=== PATIENT | male | born 1970 | race Caucasian/White ===

== ENCOUNTER → 2023-07-21 13:40 | Outpatient (BNVA) | payer OTHER, SELFPAY | PROVIDERS: Family Provider Family Medicine; PCP Nurse Practitioner; Referring Provider Nurse Practitioner; Visit Provider Surgery | DX: Z12.11 Encounter for screening for malignant neoplasm of colon (principal) | CPT/HCPCS: 99203 ==

== ENCOUNTER 2023-10-15 06:10 | Day surgery (SDC) | payer OTHER, SELFPAY ==
--- NOTE | 2023-10-15 05:35 | W.PM.OPSFHP ---
Same Day Surgery H&P Indication for Procedure/HPI DATE OF PROCEDURE: October 15, 2023 CHIEF COMPLAINT/INDICATIONFOR SURGICAL PROCEDURE: need for screening colonoscopy and gerd PREOP DIAGNOSIS: gerd PLANNED PROCEDURE: Operation Date: 10/15/23 07:40 Proposed Procedures p [id number] egd [id number] colon G0121 screen colon A risk Z12.11, K21.9(Not Applicable) - Jaret Goodrich MD s Colonoscopy(Not Applicable) - Jaret Goodrich MD Medications/Allergies* Home Medications Medication Instructions Recorded Confirmed Type ibuprofen 800 mg tablet 800 mg PO TID 07/21/23 10/13/23 History naproxen 500 mg tablet 500 mg PO BID 07/21/23 10/13/23 History Allergies/Adverse Reactions Allergy/AdvReac Type Severity Reaction Status Date / Time ciprofloxacin [From Cipro] Allergy tremor Verified 07/21/23 13:53 Pertinent History/Comorbid Conditions* Family History (Updated 07/21/23 @ 13:59 by TOMI Barfield) Hypertension Father Hypotension Mother Social History Smoking and tobacco/nicotine status: never used tobacco/nicotine Alcohol intake: current Alcohol intake frequency: few times a week Pertinent Exam Findings alert, oriented x 3, clear to auscultation bilaterally and regular rate & rhythm Recommendations Surgery/Procedure today Coding Level of Care Code Acute Code for Chg Fwd
[2023-10-15 06:28] VITALS: BP 153/102; PULSE 80; RESP 18; TEMP 36.3; O2SAT 98; BMI 29.6
[2023-10-15] MEDS: sodium chloride 0.9% 1,000 ML 30 ML IV (06:42)
--- NOTE | 2023-10-15 07:06 | ANES.PREANE2 ---
Pre-Anesthetic Assessment Height/Weight: Height 1.73 m Weight 88.451 kg Temp Pulse Resp BP Pulse Ox O2 Del Method 97.4 F L 80 18 153/102 98 Room Air 10/15/23 06:28 10/15/23 06:28 10/15/23 06:28 10/15/23 06:28 10/15/23 06:28 10/15/23 06:28 Preop Diagnosis: gerd/screening Operation Date: 10/15/23 07:40 Proposed Procedures p [id number] egd [id number] colon G0121 screen colon A risk Z12.11, K21.9(Not Applicable) - Jaret Goodrich MD s Colonoscopy(Not Applicable) - Jaret Goodrich MD Was Beta Nichelle taken within 24 hours: N/A Was Clonidine taken within 24 hours: N/A Last intake: Intake Last Liquid Date 10/14/23 Last Liquid Time 20:00 Last Solid Date 10/13/23 Last Solid Time 18:00 Social Alcohol and No tobacco Exam alert, oriented x 3, clear to auscultation bilaterally and regular rate & rhythm Airway Submandibular: within normal limits Cervical ROM: within normal limits Mallampati: Class II Dentition: full History/ROS No significant history except as noted and No significant complaints Pulmonary None reported CV/HEM Hypertension None reported Hepatic None reported GI Gastroesophageal Reflux Disease Metabolic None reported Musc/skel None reported Neuropsych None reported Anesthetic Plan ASA status: 2 Anesthesia: Anesthesia Evaluation and MAC Risk of > 500 ml blood loss (7ml/kg in children): No Medications/Allergies Home Medications Medication Instructions Recorded Confirmed Last Taken Type ibuprofen 800 mg tablet 800 mg PO TID 07/21/23 10/15/23 10/14/23 History naproxen 500 mg tablet 500 mg PO BID 07/21/23 10/15/23 10/12/23 History Allergies Allergy/AdvReac Type Severity Reaction Status Date / Time ciprofloxacin [From Cipro] Allergy tremor Verified 07/21/23 13:53 Current Medications Generic Name Dose Route Start Last Admin Trade Name Freq PRN Reason Stop Dose Admin Sodium Chloride 1,000 mls @ 30 mls/hr 10/15/23 06:15 10/15/23 06:42 Sodium Chloride 0.9% IV 10/16/23 06:14 30 mls/hr .Q24H MARLENE Administration PFSH Anesthesia Family History (Updated 07/21/23 @ 13:59 [address] CT) Father Hypertension Mother Hypotension Social History (Updated 07/21/23 @ 13:59 by TOMI Barfield) Smoking and tobacco/nicotine status: never used tobacco/nicotine Alcohol intake: current Alcohol intake frequency: few times a week Data Anesthesia Cardiac Studies: No Data to Display
[2023-10-15 08:03] VITALS: BP 121/79; PULSE 78; RESP 18; TEMP 36.6; O2SAT 94
[2023-10-15 08:11] VITALS: BP 116/81; PULSE 72; RESP 18; O2SAT 93
[2023-10-15 08:23] VITALS: BP 109/71; PULSE 72; RESP 18; O2SAT 97
[2023-10-15 08:36] VITALS: BP 108/71; PULSE 68; RESP 18; O2SAT 97
--- NOTE | 2023-10-15 08:55 | ANE.PACU2 ---
Inpatient post-anesthesia follow up: Airway intact: Yes Vital signs: Temperature 97.9 F Pulse Rate 68 Respiratory Rate 18 Blood Pressure 108/71 Pulse Oximetry 97 Oxygen Delivery Me thod Room Air Oxygen Flow Rate Fraction of Inspir ed Oxygen Hydration adequate: Yes Nausea and vomiting: No Pain level: 1 Mental status: Baseline
== END 2023-10-15 08:55 | disposition home or self-care (01) ==
PROVIDERS: Family Provider Family Medicine; PCP Nurse Practitioner; Visit Provider Surgery
PROC: 0DJ08ZZ Inspection of Upper Intestinal Tract, Via Natural or Artificial Opening Endoscopic (ICD-10-PCS; CPT 43235; principal; 2023-10-15 07:40)
PROC: 0DJD8ZZ Inspection of Lower Intestinal Tract, Via Natural or Artificial Opening Endoscopic (ICD-10-PCS; CPT 45378; 2023-10-15 07:40)
DX: Z12.11 Encounter for screening for malignant neoplasm of colon (principal); K29.30 Chronic superficial gastritis without bleeding; K29.80 Duodenitis without bleeding; K21.9 Gastro-esophageal reflux disease without esophagitis; K22.70 Barrett's esophagus without dysplasia
CPT/HCPCS: 43239; 45378; 88305; J2704; J7030

== ENCOUNTER → 2023-10-28 14:30 | Outpatient (BNVA) | payer OTHER, SELFPAY | PROVIDERS: Family Provider Family Medicine; PCP Nurse Practitioner; Visit Provider Surgery | DX: R13.10 Dysphagia, unspecified (principal); R09.A2 Foreign body sensation, throat; Z09 Encounter for follow-up examination after completed treatment for conditions other than malignant neoplasm | CPT/HCPCS: 99213 ==

== ENCOUNTER 2023-11-12 09:27 | Outpatient (CLI) | payer OTHER, SELFPAY ==
--- NOTE | 2023-11-12 10:00 | FL_ITS ---
WS: [id number] FL barium swallow modifd [id number] REASON FOR EXAM:. Difficulty swallowing. FLUOROSCOPY TIME: 1min [id number] # OF SPOT FILMS: None FINDINGS: Examination was supervised by the speech therapy department. The patient was examined in the sitting upright position on the lateral projection. Multiple swallows of varying consistency barium were monitored fluoroscopically and video recorded. A detailed report of the swallowing will be rendered by the speech therapy department. FL/FL barium swallow modifd [id number] IMPRESSION: Modified barium swallow as above.
== END 2023-11-12 09:28 | disposition home or self-care (01) ==
LOC: RAD 09:27
PROVIDERS: Family Provider Family Medicine; PCP Nurse Practitioner; Visit Provider Surgery
DX: R13.10 Dysphagia, unspecified (principal)
CPT/HCPCS: 74230; 92611

== ENCOUNTER → 2024-04-27 11:03 | Outpatient (BNVA) | payer OTHER, SELFPAY | PROVIDERS: Family Provider Family Medicine; PCP Nurse Practitioner; Visit Provider Surgery | DX: K22.70 Barrett's esophagus without dysplasia (principal) | CPT/HCPCS: 99213 ==

== ENCOUNTER → 2024-08-10 10:24 | Outpatient (BNVA) | payer OTHER, SELFPAY | PROVIDERS: Family Provider Family Medicine; PCP Nurse Practitioner; Visit Provider Surgery | DX: K22.70 Barrett's esophagus without dysplasia (principal) | CPT/HCPCS: 99213 ==

== ENCOUNTER 2024-11-09 11:07 | Day surgery (SDC) | payer OTHER, SELFPAY ==
--- NOTE | 2024-11-09 11:15 | W.PM.OPSFHP ---
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 PLANNED PROCEDURE: Operation Date: 11/09/24 12:50 Proposed Procedures p EGD 15289 K22.70(Not Applicable) - Jaret Goodrich MD Medications/Allergies* Allergies/Adverse Reactions Allergy/AdvReac Type Severity Reaction Status Date / Time ciprofloxacin (From Cipro) Allergy tremor Verified 11/07/24 09:40 Pertinent History/Comorbid Conditions* Family History (Updated 07/21/23 @ 13:59 by TOMI Barfield) Hypertension Father Hypotension Mother Social History Smoking and tobacco/nicotine status: never used tobacco/nicotine Alcohol intake: current Alcohol intake frequency: few times a week Pertinent Exam Findings alert, oriented x 3, clear to auscultation bilaterally and regular rate & rhythm Recommendations Surgery/Procedure today Coding Level of Care Code Acute Code for Chg Fwkathy
[2024-11-09 11:19] VITALS: BP 133/103; PULSE 75; RESP 18; TEMP 36.4; O2SAT 97; BMI 28.8
[2024-11-09] MEDS: sodium chloride 0.9% 1,000 ML 15 ML IV (11:28)
--- NOTE | 2024-11-09 11:34 | P.ANESASSM_ITS ---
Pre-Anesthetic Assessment Height/Weight: Height 1.73 m Weight 86.183 kg Temp Pulse Resp BP Pulse Ox O2 Del Method 97.5 F L 75 18 133/103 97 Room Air 11/09/24 11:19 11/09/24 11:19 11/09/24 11:19 11/09/24 11:19 11/09/24 11:19 11/09/24 11:19 Preop Diagnosis: history of octavio's Operation Date: 11/09/24 12:50 Proposed Procedures p EGD 76251 K22.70(Not Applicable) - Jaret Goodrich MD Familial anesthetic complications: none Was Beta Nichelle taken within 24 hours: N/A Was Clonidine taken within 24 hours: N/A Last intake: Intake Last Liquid Date 11/08/24 Last Liquid Time 19:00 Last Solid Date 11/08/24 Last Solid Time 19:00 Social No alcohol and No tobacco Exam alert and oriented x 3 Airway Submandibular: within normal limits Cervical ROM: within normal limits Mallampati: Class II Dentition: full History/ROS No significant history except as noted Pulmonary None reported CV/HEM None reported None reported Hepatic None reported GI Gastroesophageal Reflux Disease Metabolic None reported Musc/skel None reported Neuropsych None reported Anesthetic Plan ASA status: 2 Anesthesia: MAC Risk of > 500 ml blood loss (7ml/kg in children): No Medications/Allergies Home Medications ?Medication ?Instructions ?Recorded ?Confirmed ?Last Taken ?Type pantoprazole 40 mg tablet,delayed 40 mg PO ONCE 6 rona hs #180 tabs 04/27/24 11/09/24 11/08/24 Rx release Allergies Allergy/AdvReac Type Severity Reaction Status Date / Time ciprofloxacin (From Cipro) Allergy tremor Verified 11/09/24 11:17 Current Medications Generic Name Dose Route Start Last Admin Trade Name Freq PRN Reason Stop Dose Admin Sodium Chloride 1,000 mls @ 15 mls/hr 11/09/24 11:11 11/09/24 11:28 Sodium Chloride 0.9% IV 11/10/24 11:10 15 mls/hr .Q24H PRN Administration COLONOSCOPY FLUIDS PFSH Anesthesia Family History Father Hypertension Mother Hypotension Social History Smoking and tobacco/nicotine status: never used tobacco/nicotine Alcohol intake: current Alcohol intake frequency: few times a week
[2024-11-09 12:00] VITALS: BP 125/99; PULSE 70; RESP 18; TEMP 36.3; O2SAT 96
[2024-11-09 12:08] VITALS: BP 128/89; PULSE 78; RESP 18; TEMP 36.2; O2SAT 96
--- NOTE | 2024-11-09 12:31 | ANE.PACU2 ---
Inpatient post-anesthesia follow up: Airway intact: Yes Vital signs: Temperature 97.2 F Pulse Rate 78 Respiratory Rate 18 Blood Pressure 128/89 Pulse Oximetry 96 Oxygen Delivery Me thod Room Air Oxygen Flow Rate Fraction of Inspir ed Oxygen Hydration adequate: Yes Nausea and vomiting: No Pain level: 1 Mental status: Baseline
== END 2024-11-09 12:31 | disposition home or self-care (01) ==
PROVIDERS: PCP Nurse Practitioner; Visit Provider Surgery
PROC: 0DJ08ZZ Inspection of Upper Intestinal Tract, Via Natural or Artificial Opening Endoscopic (ICD-10-PCS; principal; 2024-11-09 12:50)
DX: K21.01 Gastro-esophageal reflux disease with esophagitis, with bleeding (principal); Z88.1 Allergy status to other antibiotic agents; Z87.19 Personal history of other diseases of the digestive system
CPT/HCPCS: 43239; 88305; J2704; J7030

== ENCOUNTER → 2024-12-07 08:26 | Outpatient (BNVA) | payer OTHER, SELFPAY | PROVIDERS: PCP Nurse Practitioner; Visit Provider Surgery | DX: Z09 Encounter for follow-up examination after completed treatment for conditions other than malignant neoplasm (principal) | CPT/HCPCS: 99213 ==